=== PATIENT | male | born 1970 | race Two or more races ===

== ENCOUNTER 2024-07-29 12:18 | Emergency (ER) | payer MEDICAID ==
[~2024-07-29] VITALS: Ht 162.6 cm; Wt 79.9 kg
[2024-07-29 13:19] LABS: Basophils # (auto) 0.1 10 ^3/uL (0-0.2); Basophils % (auto) 0.9 % (0.0-2.0); Eosinophils # (auto) 0 10 ^3/uL (0-0.8); Eosinophils % (auto) 0.2 % (0.0-7.0); Lymphocytes # (auto) 1.2 10 ^3/uL (0.4-5.4); Lymphocytes % (auto) 14.1 % (10.0-50.0); Mean Corpuscular Hemoglobin 31.3 pg (28.0-32.0); Mean Corpuscular Volume 92.2 fL (80.0-100.0); Monocytes # (auto) 0.7 10 ^3/uL (0-1.3); Monocytes % (auto) 7.7 % (0.0-12.0); Neutrophils # (auto) 6.5 10 ^3/uL (1.6-8.6); Neutrophils % (auto) 77.1 % (37.0-80.0); Platelet Count (auto) 315 10^3/uL (140-450); Red Blood Cells 5.42 10^6/uL (4.5-5.90); Red Cell Distribution Width 13.4 % (11.8-14.3); White Blood Cell 8.4 10^3/uL (4.4-10.8)
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
--- NOTE | 2024-07-29 13:30 | DVH ---
XY KUB ABDOMEN SINGLE VIEW HISTORY: constipation TECHNICAL DATA: 1 view of the abdomen. COMPARISON: None FINDINGS: There are no dilated small bowel loops. There is no abdominal mass effect. The renal and liver shad ows are not enlarged. No abnormal calcifications are demonstrated. IMPRESSION: Lack of small bowel gas. Mild colonic fecal burden. No acute intra-abdominal process.
[2024-07-29 13:37] LABS: Anion Gap 11 (5-15); Carbon Dioxide 20 mmol/L (20-31); Potassium 3.7 mmol/L (3.5-5.1); Sodium 141 mmol/L (136-145)
[2024-07-29 13:38] LABS: Calcium 10.4 mg/dL (8.7-10.4)
[2024-07-29 13:43] LABS: BUN/Creatinine Ratio 14.1 (10.0-20.0); Blood Urea Nitrogen 13 mg/dL (9-23)
[2024-07-29 14:06] LABS: Chloride 110 mmol/L (98-107); Glucose 177 mg/dL (74-106)
[2024-07-29] MEDS ORDERED: POLY335015 PO (15:05)
[2024-07-29 15:27] VITALS: BP 133/95; PULSE 99; RESP 17; TEMP 98.6; O2SAT 96
== END 2024-07-29 15:28 | disposition home or self-care (01) ==
LOC: ER 12:18
DX: K59.00 Constipation, unspecified (principal); F41.9 Anxiety disorder, unspecified; R00.0 Tachycardia, unspecified; Z88.0 Allergy status to penicillin
CPT/HCPCS: 36415; 74018; 80048; 85025